=== PATIENT | male | born 1965 | race Caucasian/White ===

== ENCOUNTER → 2018-09-14 15:54 | Outpatient (CLI) | payer OTHER, SELFPAY ==
--- NOTE | 2018-09-14 15:59 | DI.RAD.S_ITS ---
PROCEDURE: XR KNEE LT 3V INDICATIONS: Left knee pain TECHNIQUE: 3 views of the knee were acquired. COMPARISON: None. FINDINGS: Bones: No fractures or dislocations. No suspicious bony lesions. Age-appropriate bony degenerative changes are seen. Soft tissues: There is a small moderate joint effusion. No suspicious soft tissue calcifications. IMPRESSION: No acute bony injury is seen. Small to moderate joint effusion. If it would be helpful for clinical management decision making, please consider a dedicated knee MRI for further evaluation (assuming that there is no contraindication). Dictated by: Carlton Nava M.D. on 09/14/2018 at 15:29 Approved by: Carlton Nava M.D. on 09/14/2018 at 15:30
== END ==
PROVIDERS: PCP Family Medicine; Visit Provider Physician Assistant
DX: M25.562 Pain in left knee (principal); M25.462 Effusion, left knee
CPT/HCPCS: 73562

== ENCOUNTER → 2025-04-07 10:42 | Outpatient (CLI) | payer OTHER, SELFPAY | PROVIDERS: Family Provider Family Medicine; PCP Family Medicine; Referring Provider Family Medicine; Visit Provider Family Medicine | DX: R29.898 Other symptoms and signs involving the musculoskeletal system (principal) | CPT/HCPCS: 95886; 95909 ==